=== PATIENT | male | born 1960 | race Caucasian/White ===

== ENCOUNTER 2022-12-17 12:57 | Inpatient (IN) | payer MEDICARE ==
[~2022-12-17] VITALS: Ht 165.1 cm; Wt 108.0 kg
[2022-12-17] MEDS ORDERED: FUROSEMIDE INJ 10 MG/ML 2 ML VIAL IV PRN (13:30)
[2022-12-17] MEDS ORDERED: SODIUM CHLORIDE 0.9% 250ML 250 ML IV ONE (13:30)
[2022-12-17] MEDS ORDERED: ACETAMINOPHEN 325 MG TAB PO STA (13:30)
[2022-12-17] MEDS ORDERED: DIPHENHYDRAMINE HCL INJ 50 MG/ML VIAL IV ONE (13:30)
[2022-12-17] MEDS ORDERED: OCTREOTIDE ACETATE 0.05 MG/ML AMP IV STA (13:47)
[2022-12-17 14:06] LABS: BASOPHILS % 0.2 % (0.0-1.0); EOSINOPHILS # (AUTO) 0.1 (0.0-0.4); EOSINOPHILS % 0.6 % (0.0-6.0); LYMPHOCYTES # (AUTO) 1.8 (1.0-3.2); MEAN CORPUSCULAR HEMOGLOBIN 21.1 pg (28-32); MEAN CORPUSCULAR HGB CONC 26.4 g/dL (31-35); MEAN CORPUSCULAR VOLUME 79.8 fL (81-99); MONOCYTES # (AUTO) 1.3 (0.2-0.8); MONOCYTES % 10.2 % (4.4-11.3); NEUTROPHILS % 73.6 % (38.7-80.0); PLATELET COUNT 323 x10e3/uL (140-360); RED BLOOD COUNT 2.23 x10e6/uL (4.3-5.7); RED CELL DISTRIBUTION WIDTH 20.4 % (11.7-14.4)
[2022-12-17 14:10] LABS: HEMOGLOBIN 4.7 g/dL (14.0-18.0)
[2022-12-17 14:11] LABS: HEMATOCRIT 17.8 % (38.2-49.6)
[2022-12-17 14:19] LABS: INR 1.15; PARTIAL THROMBOPLASTIN TIME 29.8 seconds (23.8-35.5); PROTHROMBIN TIME 15.2 seconds (11.9-14.5)
[2022-12-17 14:45] LABS: ALANINE AMINOTRANSFERASE 16 IU/L (0-55); ALBUMIN 2.4 g/dL (3.5-5.0); ALBUMIN/GLOBULIN RATIO 0.7 (0.8-2.0); ALKALINE PHOSPHATASE 240 IU/L (40-150); ANION GAP 14.5 mmol/L (8-16); BLOOD UREA NITROGEN < 5 mg/dL (7-26); CALCIUM 8.1 mg/dL (8.4-10.2); CARBON DIOXIDE 22 mmol/L (22-29); CHLORIDE 97 mmol/L (98-107); CREATINE KINASE 30 IU/L (30-200); GLUCOSE 99 mg/dL (74-118); POTASSIUM 3.5 mmol/L (3.5-5.1); SODIUM 130 mmol/L (136-145)
[2022-12-17 14:46] LABS: BUN/CREATININE RATIO 10 (6-25)
[2022-12-17] MEDS: SODIUM CHLORIDE 0.9% 1000ML 1,000 ML IV SCH ×2 (15:15→21:11)
[2022-12-17] MEDS: OCTREOTIDE ACETATE 500 MCG in SODIUM CHLORIDE 0.9% 250ML 250 ML IV SCH (15:17)
[2022-12-17 15:22] LABS: ALBUMIN 2.5 g/dL (3.5-5.0); BILIRUBIN,DIRECT 0.6 mg/dL (0.0-0.5)
[2022-12-17 15:33] LABS: HYPOCHROMASIA SLIGHT; PLATELET ESTIMATE ADEQUATE; PLATELET MORPHOLOGY COMMENT NORMAL
[2022-12-17 15:34] LABS: ANISOCYTOSIS SLIGHT; MICROCYTOSIS SLIGHT
[2022-12-17 17:00] VITALS: BP 147/87; PULSE 103; RESP 20; TEMP 97.7; O2SAT 100
[2022-12-17 17:15] VITALS: BP 147/87; PULSE 103; RESP 20; TEMP 97.7; O2SAT 100
[2022-12-17] MEDS ORDERED: AMLODIPINE-OLM1 EAC1 PO (17:30)
[2022-12-17] MEDS ORDERED: SIMVASTATIN40 MG PO (17:30)
[2022-12-17] MEDS ORDERED: OMEPRAZOLE20 MG PO (17:30)
[2022-12-17] MEDS ORDERED: ALBUTEROL2.5 MG/0.5 INH (17:30)
[2022-12-17] MEDS ORDERED: FUROSEMIDE40 MG PO (17:30)
[2022-12-17 19:25] VITALS: BP 150/90; PULSE 99; RESP 19; TEMP 98.7; O2SAT 99
[2022-12-17 20:10] VITALS: BP 150/90; PULSE 99; RESP 19; TEMP 98.7; O2SAT 99
[2022-12-17] MEDS ORDERED: SODIUM CHLORIDE 0.9% 250ML 250 ML ONE (20:52)
[2022-12-17] MEDS ORDERED: THIAMINE HCL INJ 100 MG/ML 2ML VIAL IV ONE (23:30)
[2022-12-17] MEDS ORDERED: MULTIVITAMINS- 12 INJECTION 10 ML, FOLIC ACID MDV 1 MG, THIAMINE HCL INJ 100 MG in SODI... IV ONE (23:30)
[2022-12-17 23:47] LABS: % IRON SATURATION 4 % (15-50); IRON 13 ug/dL (65-175); TOTAL IRON BINDING CAPACITY 364 ug/dL (261-478); TRANSFERRIN 260 mg/dL (174-364)
[2022-12-18] MEDS ORDERED: SPIRONOLACTONE 25 MG TAB PO ONE
[2022-12-18] MEDS ORDERED: THIAMINE HCL INJ 100 MG/ML 2ML VIAL ONE ×2 (00:06→00:36)
[2022-12-18] MEDS ORDERED: SODIUM CHLORIDE 0.9% 1000ML 1,000 ML ONE (00:06)
[2022-12-18] MEDS ORDERED: OCTREOTIDE ACETATE 1 ML ONE (00:36)
[2022-12-18] MEDS ORDERED: MULTIVITAMINS INJECTION ONE (00:36)
[2022-12-18] MEDS ORDERED: SODIUM CHLORIDE 0.9% 250ML 250 ML ONE (00:37)
[2022-12-18] MEDS: OCTREOTIDE ACETATE 500 MCG in SODIUM CHLORIDE 0.9% 250ML 250 ML IV SCH ×3 (02:13→20:06)
[2022-12-18 06:17] LABS: BASOPHILS % 0.4 % (0.0-1.0); EOSINOPHILS # (AUTO) 0.1 (0.0-0.4); EOSINOPHILS % 0.9 % (0.0-6.0); HEMATOCRIT 24.2 % (38.2-49.6); LYMPHOCYTES # (AUTO) 1.6 (1.0-3.2); LYMPHOCYTES % 15.4 % (18.0-39.1); MEAN CORPUSCULAR HEMOGLOBIN 24.1 pg (28-32); MEAN CORPUSCULAR HGB CONC 28.9 g/dL (31-35); MEAN CORPUSCULAR VOLUME 83.4 fL (81-99); MONOCYTES # (AUTO) 1.1 (0.2-0.8); MONOCYTES % 10.3 % (4.4-11.3); NEUTROPHILS # (AUTO) 7.4 (2.1-6.9); NEUTROPHILS % 72.3 % (38.7-80.0); PLATELET COUNT 284 x10e3/uL (140-360); RED CELL DISTRIBUTION WIDTH 18.6 % (11.7-14.4)
[2022-12-18 06:32] LABS: ALANINE AMINOTRANSFERASE 14 IU/L (0-55); ALBUMIN 2.4 g/dL (3.5-5.0); ALBUMIN/GLOBULIN RATIO 0.8 (0.8-2.0); ALKALINE PHOSPHATASE 214 IU/L (40-150); ANION GAP 12.4 mmol/L (8-16); BLOOD UREA NITROGEN < 5 mg/dL (7-26); CARBON DIOXIDE 25 mmol/L (22-29); CHLORIDE 98 mmol/L (98-107); CREATININE, SERUM 0.52 mg/dL (0.72-1.25); GLUCOSE 129 mg/dL (74-118); POTASSIUM 3.4 mmol/L (3.5-5.1); SODIUM 132 mmol/L (136-145)
[2022-12-18 06:36] LABS: BUN/CREATININE RATIO 10 (6-25)
[2022-12-18 08:21] VITALS: BP 135/81; PULSE 95; RESP 21; TEMP 98; O2SAT 97
[2022-12-18 09:30] VITALS: BP 135/81; PULSE 95; RESP 21; TEMP 98; O2SAT 97
[2022-12-18] MEDS: SPIRONOLACTONE 25 MG TAB PO SCH ×2 (09:38→16:39)
[2022-12-18] MEDS: CHLORDIAZEPOXIDE HCL 25 MG CAP PO SCH ×2 (09:38→20:08)
[2022-12-18] MEDS: FUROSEMIDE 40 MG TAB PO SCH (09:38)
[2022-12-18] MEDS: FOLIC ACID 1 MG TAB PO SCH (09:39)
[2022-12-18] MEDS: THIAMINE HCL INJ 100 MG/ML 2ML VIAL IV SCH (09:39)
[2022-12-18] MEDS ORDERED: SODIUM CHLORIDE 452MG TAB PO ONE (11:45)
[2022-12-18] MEDS ORDERED: ALBUTEROL SULF 0.083% NEB SOLN 3 ML NEB NEB PRN (11:45)
[2022-12-18 11:52] LABS: BASOPHILS # (AUTO) 0.1 (0.0-0.1); BASOPHILS % 0.5 % (0.0-1.0); EOSINOPHILS # (AUTO) 0.2 (0.0-0.4); EOSINOPHILS % 1.5 % (0.0-6.0); HEMATOCRIT 24.4 % (38.2-49.6); HEMOGLOBIN 7.2 g/dL (14.0-18.0); LYMPHOCYTES % 18.8 % (18.0-39.1); MEAN CORPUSCULAR HEMOGLOBIN 23.9 pg (28-32); MEAN CORPUSCULAR HGB CONC 29.5 g/dL (31-35); MEAN CORPUSCULAR VOLUME 81.1 fL (81-99); MONOCYTES % 9.8 % (4.4-11.3); NEUTROPHILS # (AUTO) 7.2 (2.1-6.9); NEUTROPHILS % 68.9 % (38.7-80.0); PLATELET COUNT 307 x10e3/uL (140-360); RED BLOOD COUNT 3.01 x10e6/uL (4.3-5.7); RED CELL DISTRIBUTION WIDTH 18.9 % (11.7-14.4)
[2022-12-18] MEDS ORDERED: POTASSIUM CHLORIDE 20 MEQ TAB CR PO ONE (12:00)
[2022-12-18 12:07] LABS: CREATINE KINASE 25 IU/L (30-200)
[2022-12-18] MEDS: AMLODIPINE BESYLATE 10 MG TAB PO SCH (12:10)
[2022-12-18 12:13] VITALS: BP 130/81; PULSE 77; RESP 21; TEMP 97.8; O2SAT 100
[2022-12-18 16:14] VITALS: BP 128/76; PULSE 101; RESP 22; TEMP 97.8; O2SAT 100
[2022-12-18] MEDS: IRON SUCROSE 100 MG in SODIUM CHLORIDE 0.9% 100 ML IV SCH (16:40)
[2022-12-18] MEDS ORDERED: BISACODYL 5 MG TAB EC PO ONE (17:00)
[2022-12-18 17:31] LABS: BASOPHILS % 0.4 % (0.0-1.0); EOSINOPHILS # (AUTO) 0.2 (0.0-0.4); HEMATOCRIT 23.6 % (38.2-49.6); LYMPHOCYTES # (AUTO) 2.1 (1.0-3.2); LYMPHOCYTES % 21.7 % (18.0-39.1); MEAN CORPUSCULAR HEMOGLOBIN 24.1 pg (28-32); MEAN CORPUSCULAR HGB CONC 29.7 g/dL (31-35); MEAN CORPUSCULAR VOLUME 81.1 fL (81-99); MONOCYTES % 9.9 % (4.4-11.3); NEUTROPHILS # (AUTO) 6.4 (2.1-6.9); NEUTROPHILS % 65.6 % (38.7-80.0); PLATELET COUNT 289 x10e3/uL (140-360); RED BLOOD COUNT 2.91 x10e6/uL (4.3-5.7); RED CELL DISTRIBUTION WIDTH 18.9 % (11.7-14.4)
[2022-12-18] MEDS ORDERED: BISACODYL 5 MG TAB EC PO SCH (19:00)
[2022-12-18 19:25] VITALS: BP 142/76; PULSE 80; RESP 18; TEMP 97.6; O2SAT 98
[2022-12-18 20:00] VITALS: BP 142/76; PULSE 82; RESP 18; TEMP 97.6; O2SAT 98
[2022-12-18] MEDS ORDERED: CITRATE OF MAGNESIA 300ML BOTTLE PO SCH (21:00)
[2022-12-18] MEDS ORDERED: FUROSEMIDE INJ 10 MG/ML 4 ML VIAL IV ONE ×2 (23:00)
[2022-12-19] VITALS (10 sets, daily range): BP systolic 112–147; BP diastolic 72–89; PULSE 79–112; RESP 18–20; TEMP 97.4–98.3; O2SAT 95–100
[2022-12-19] MEDS ORDERED: THIAMINE HCL INJ 100 MG/ML 2ML VIAL ONE (00:38)
[2022-12-19] MEDS ORDERED: SODIUM CHLORIDE 0.9% 1000ML 1,000 ML ONE (00:38)
[2022-12-19] MEDS: MULTIVITAMINS- 12 INJECTION 10 ML, FOLIC ACID MDV 1 MG, THIAMINE HCL INJ 100 MG in SODI... IV SCH (01:19)
[2022-12-19] MEDS ORDERED: CITRATE OF MAGNESIA 300ML BOTTLE PO SCH (05:00)
[2022-12-19] MEDS: OCTREOTIDE ACETATE 500 MCG in SODIUM CHLORIDE 0.9% 250ML 250 ML IV SCH ×2 (06:00→21:34)
[2022-12-19 06:17] LABS: BASOPHILS # (AUTO) 0.1 (0.0-0.1); BASOPHILS % 0.4 % (0.0-1.0); EOSINOPHILS # (AUTO) 0.2 (0.0-0.4); EOSINOPHILS % 1.9 % (0.0-6.0); HEMATOCRIT 26.3 % (38.2-49.6); HEMOGLOBIN 7.6 g/dL (14.0-18.0); LYMPHOCYTES # (AUTO) 2.1 (1.0-3.2); LYMPHOCYTES % 17.4 % (18.0-39.1); MEAN CORPUSCULAR HEMOGLOBIN 24.1 pg (28-32); MEAN CORPUSCULAR HGB CONC 28.9 g/dL (31-35); MEAN CORPUSCULAR VOLUME 83.2 fL (81-99); MONOCYTES # (AUTO) 1.3 (0.2-0.8); MONOCYTES % 10.6 % (4.4-11.3); NEUTROPHILS # (AUTO) 8.5 (2.1-6.9); NEUTROPHILS % 69.2 % (38.7-80.0); PLATELET COUNT 313 x10e3/uL (140-360); RED BLOOD COUNT 3.16 x10e6/uL (4.3-5.7); RED CELL DISTRIBUTION WIDTH 19.2 % (11.7-14.4)
[2022-12-19] MEDS: SPIRONOLACTONE 25 MG TAB PO SCH ×2 (09:00→17:48)
[2022-12-19] MEDS: OLMESARTAN 20 MG TAB PO SCH (09:00)
[2022-12-19] MEDS: FOLIC ACID 1 MG TAB PO SCH (09:00)
[2022-12-19] MEDS: CHLORDIAZEPOXIDE HCL 25 MG CAP PO SCH ×2 (09:00→21:25)
[2022-12-19] MEDS: SIMVASTATIN 40 MG TAB PO SCH (09:00)
[2022-12-19] MEDS: FUROSEMIDE 40 MG TAB PO SCH (09:00)
[2022-12-19] MEDS: AMLODIPINE BESYLATE 10 MG TAB PO SCH (09:00)
[2022-12-19 09:45] LABS: ANISOCYTOSIS SLIGHT; PLATELET ESTIMATE ADEQUATE; PLATELET MORPHOLOGY COMMENT NORMAL; RBC MORPHOLOGY COMMENT NORMAL
[2022-12-19] MEDS: THIAMINE HCL INJ 100 MG/ML 2ML VIAL IV SCH (09:47)
[2022-12-19] MEDS ORDERED: SODIUM CHLORIDE 0.9% 250ML 250 ML IV ONE (12:00)
[2022-12-19] MEDS ORDERED: LIDOCAINE HCL 2% LOCAL INJ 5 ML SDV VIAL INJ ONE (13:04)
[2022-12-19] MEDS ORDERED: PROPOFOL IV EMULSION 10 MG/ML 20 ML VIAL ONE (13:04)
[2022-12-19] MEDS ORDERED: ALBUTEROL SULF 0.083% NEB SOLN 3 ML NEB NEB PRN (13:30)
[2022-12-19] MEDS: IRON SUCROSE 100 MG in SODIUM CHLORIDE 0.9% 100 ML IV SCH (17:48)
[2022-12-19] MEDS ORDERED: SODIUM CHLORIDE 0.9% 250ML 250 ML ONE (18:36)
[2022-12-19 18:51] LABS: BASOPHILS % 0.4 % (0.0-1.0); EOSINOPHILS # (AUTO) 0.2 (0.0-0.4); EOSINOPHILS % 2.2 % (0.0-6.0); LYMPHOCYTES # (AUTO) 2.1 (1.0-3.2); LYMPHOCYTES % 18.8 % (18.0-39.1); MEAN CORPUSCULAR HEMOGLOBIN 24.3 pg (28-32); MEAN CORPUSCULAR HGB CONC 28.3 g/dL (31-35); MEAN CORPUSCULAR VOLUME 85.7 fL (81-99); MONOCYTES % 9.3 % (4.4-11.3); NEUTROPHILS # (AUTO) 7.6 (2.1-6.9); NEUTROPHILS % 68.7 % (38.7-80.0); PLATELET COUNT 290 x10e3/uL (140-360); RED CELL DISTRIBUTION WIDTH 19.3 % (11.7-14.4)
[2022-12-19 18:56] LABS: HEMOGLOBIN 6.8 g/dL (14.0-18.0)
[2022-12-20] VITALS (10 sets, daily range): BP systolic 100–134; BP diastolic 71–91; PULSE 64–86; RESP 18–20; TEMP 96.9–98; O2SAT 94–100
[2022-12-20] MEDS: OCTREOTIDE ACETATE 500 MCG in SODIUM CHLORIDE 0.9% 250ML 250 ML IV SCH ×2 (02:43→17:25)
[2022-12-20] MEDS: MULTIVITAMINS- 12 INJECTION 10 ML, FOLIC ACID MDV 1 MG, THIAMINE HCL INJ 100 MG in SODI... IV SCH (02:43)
[2022-12-20 05:50] LABS: BASOPHILS # (AUTO) 0.1 (0.0-0.1); BASOPHILS % 0.5 % (0.0-1.0); EOSINOPHILS # (AUTO) 0.3 (0.0-0.4); EOSINOPHILS % 2.6 % (0.0-6.0); HEMATOCRIT 26.5 % (38.2-49.6); HEMOGLOBIN 7.7 g/dL (14.0-18.0); LYMPHOCYTES # (AUTO) 2.1 (1.0-3.2); LYMPHOCYTES % 19.3 % (18.0-39.1); MEAN CORPUSCULAR HEMOGLOBIN 25.2 pg (28-32); MEAN CORPUSCULAR HGB CONC 29.1 g/dL (31-35); MEAN CORPUSCULAR VOLUME 86.9 fL (81-99); MONOCYTES # (AUTO) 0.9 (0.2-0.8); MONOCYTES % 8.6 % (4.4-11.3); NEUTROPHILS # (AUTO) 7.3 (2.1-6.9); NEUTROPHILS % 68.4 % (38.7-80.0); PLATELET COUNT 290 x10e3/uL (140-360); RED BLOOD COUNT 3.05 x10e6/uL (4.3-5.7); RED CELL DISTRIBUTION WIDTH 19.1 % (11.7-14.4)
[2022-12-20] MEDS ORDERED: CITRATE OF MAGNESIA 300ML BOTTLE PO ONE (07:00)
[2022-12-20] MEDS: AMLODIPINE BESYLATE 10 MG TAB PO SCH (09:01)
[2022-12-20] MEDS: OLMESARTAN 20 MG TAB PO SCH (09:01)
[2022-12-20] MEDS: SPIRONOLACTONE 25 MG TAB PO SCH ×2 (09:02→17:25)
[2022-12-20] MEDS: CHLORDIAZEPOXIDE HCL 25 MG CAP PO SCH ×2 (09:02→22:45)
[2022-12-20] MEDS: SIMVASTATIN 40 MG TAB PO SCH (09:02)
[2022-12-20] MEDS: FOLIC ACID 1 MG TAB PO SCH (09:02)
[2022-12-20] MEDS: THIAMINE HCL INJ 100 MG/ML 2ML VIAL IV SCH (09:02)
[2022-12-20] MEDS: FUROSEMIDE 40 MG TAB PO SCH (09:03)
[2022-12-20] MEDS ORDERED: SODIUM CHLORIDE 452MG TAB PO ONE ×2 (10:00→15:00)
[2022-12-20] MEDS ORDERED: POTASSIUM CHLORIDE 20 MEQ TAB CR PO ONE ×2 (10:30→16:00)
[2022-12-20] MEDS ORDERED: FENTANYL CITRATE/PF 100MCG/2 ML INJ ONE (11:28)
[2022-12-20] MEDS ORDERED: MAGNESIUM SULF 1GRAM/DEXTROSE 100 ML IV ONE (12:00)
[2022-12-20] MEDS ORDERED: HYOSCYAMINE SULFATE 0.5 MG/ML INJ ONE (12:55)
[2022-12-20] MEDS ORDERED: PROPOFOL IV EMULSION 10 MG/ML 20 ML VIAL ONE (12:55)
[2022-12-20] MEDS ORDERED: LIDOCAINE HCL 2% LOCAL INJ 5 ML SDV VIAL INJ ONE (12:55)
[2022-12-20] MEDS: IRON SUCROSE 100 MG in SODIUM CHLORIDE 0.9% 100 ML IV SCH (14:32)
[2022-12-20 15:12] LABS: BASOPHILS # (AUTO) 0.1 (0.0-0.1); BASOPHILS % 0.4 % (0.0-1.0); EOSINOPHILS # (AUTO) 0.3 (0.0-0.4); EOSINOPHILS % 2.6 % (0.0-6.0); HEMATOCRIT 28.2 % (38.2-49.6); HEMOGLOBIN 8.2 g/dL (14.0-18.0); LYMPHOCYTES # (AUTO) 2.1 (1.0-3.2); LYMPHOCYTES % 18.3 % (18.0-39.1); MEAN CORPUSCULAR HEMOGLOBIN 25.1 pg (28-32); MEAN CORPUSCULAR HGB CONC 29.1 g/dL (31-35); MEAN CORPUSCULAR VOLUME 86.2 fL (81-99); MONOCYTES # (AUTO) 0.7 (0.2-0.8); MONOCYTES % 6.3 % (4.4-11.3); NEUTROPHILS # (AUTO) 8.4 (2.1-6.9); PLATELET COUNT 292 x10e3/uL (140-360); RED BLOOD COUNT 3.27 x10e6/uL (4.3-5.7); RED CELL DISTRIBUTION WIDTH 19.5 % (11.7-14.4)
[2022-12-21] VITALS (11 sets, daily range): BP systolic 100–141; BP diastolic 62–80; PULSE 76–90; RESP 16–21; TEMP 97.2–98.9; O2SAT 87–99
[2022-12-21] MEDS: OCTREOTIDE ACETATE 500 MCG in SODIUM CHLORIDE 0.9% 250ML 250 ML IV SCH ×2 (04:41→15:52)
[2022-12-21] MEDS ORDERED: SODIUM CHLORIDE 0.9% 250ML 250 ML ONE (07:57)
[2022-12-21] MEDS: AMLODIPINE BESYLATE 5 MG TAB PO SCH (08:05)
[2022-12-21] MEDS: FUROSEMIDE 40 MG TAB PO SCH (08:05)
[2022-12-21] MEDS: FOLIC ACID 1 MG TAB PO SCH (08:06)
[2022-12-21] MEDS: CHLORDIAZEPOXIDE HCL 25 MG CAP PO SCH ×2 (08:06→20:29)
[2022-12-21] MEDS: SPIRONOLACTONE 25 MG TAB PO SCH ×2 (08:07→16:18)
[2022-12-21] MEDS: OLMESARTAN 20 MG TAB PO SCH (08:07)
[2022-12-21] MEDS: SODIUM CHLORIDE 452MG TAB PO SCH (08:08)
[2022-12-21] MEDS: SIMVASTATIN 40 MG TAB PO SCH (08:08)
[2022-12-21] MEDS: THIAMINE HCL INJ 100 MG/ML 2ML VIAL IV SCH (08:15)
[2022-12-21 08:55] LABS: BASOPHILS # (AUTO) 0.1 (0.0-0.1); BASOPHILS % 0.5 % (0.0-1.0); EOSINOPHILS # (AUTO) 0.2 (0.0-0.4); EOSINOPHILS % 1.6 % (0.0-6.0); HEMATOCRIT 29.9 % (38.2-49.6); HEMOGLOBIN 8.7 g/dL (14.0-18.0); LYMPHOCYTES # (AUTO) 2.6 (1.0-3.2); LYMPHOCYTES % 18.2 % (18.0-39.1); MEAN CORPUSCULAR HEMOGLOBIN 25.3 pg (28-32); MEAN CORPUSCULAR HGB CONC 29.1 g/dL (31-35); MEAN CORPUSCULAR VOLUME 86.9 fL (81-99); MONOCYTES % 7.2 % (4.4-11.3); NEUTROPHILS # (AUTO) 10.5 (2.1-6.9); NEUTROPHILS % 72.1 % (38.7-80.0); PLATELET COUNT 330 x10e3/uL (140-360); RED BLOOD COUNT 3.44 x10e6/uL (4.3-5.7); RED CELL DISTRIBUTION WIDTH 20.9 % (11.7-14.4)
[2022-12-21 09:16] LABS: ALANINE AMINOTRANSFERASE 15 IU/L (0-55); ALBUMIN 2.6 g/dL (3.5-5.0); ALBUMIN/GLOBULIN RATIO 0.8 (0.8-2.0); ALKALINE PHOSPHATASE 167 IU/L (40-150); ANION GAP 10.3 mmol/L (8-16); BLOOD UREA NITROGEN < 5 mg/dL (7-26); BUN/CREATININE RATIO 8 (6-25); CALCIUM 8.3 mg/dL (8.4-10.2); CARBON DIOXIDE 25 mmol/L (22-29); CHLORIDE 103 mmol/L (98-107); CREATININE, SERUM 0.64 mg/dL (0.72-1.25); GLUCOSE 113 mg/dL (74-118); POTASSIUM 3.3 mmol/L (3.5-5.1); SODIUM 135 mmol/L (136-145)
[2022-12-22] VITALS: BP 146/77; PULSE 88; RESP 20; TEMP 97.5; O2SAT 94
[2022-12-22] MEDS: OCTREOTIDE ACETATE 500 MCG in SODIUM CHLORIDE 0.9% 250ML 250 ML IV SCH ×3 (03:47→06:46)
[2022-12-22 04:45] VITALS: BP 112/65; PULSE 90; RESP 17; TEMP 97.5; O2SAT 98
[2022-12-22 06:00] LABS: BASOPHILS # (AUTO) 0.1 (0.0-0.1); BASOPHILS % 0.7 % (0.0-1.0); EOSINOPHILS # (AUTO) 0.2 (0.0-0.4); EOSINOPHILS % 1.9 % (0.0-6.0); HEMATOCRIT 27.1 % (38.2-49.6); HEMOGLOBIN 7.9 g/dL (14.0-18.0); LYMPHOCYTES # (AUTO) 2.2 (1.0-3.2); LYMPHOCYTES % 20.8 % (18.0-39.1); MEAN CORPUSCULAR HEMOGLOBIN 25.6 pg (28-32); MEAN CORPUSCULAR HGB CONC 29.2 g/dL (31-35); MEAN CORPUSCULAR VOLUME 87.7 fL (81-99); MONOCYTES # (AUTO) 0.9 (0.2-0.8); MONOCYTES % 8.7 % (4.4-11.3); NEUTROPHILS % 67.5 % (38.7-80.0); PLATELET COUNT 281 x10e3/uL (140-360); RED BLOOD COUNT 3.09 x10e6/uL (4.3-5.7)
[2022-12-22 06:28] LABS: ANION GAP 9.1 mmol/L (8-16); BLOOD UREA NITROGEN < 5 mg/dL (7-26); CALCIUM 7.9 mg/dL (8.4-10.2); CARBON DIOXIDE 26 mmol/L (22-29); CHLORIDE 104 mmol/L (98-107); CREATININE, SERUM 0.56 mg/dL (0.72-1.25); GLUCOSE 118 mg/dL (74-118); POTASSIUM 3.1 mmol/L (3.5-5.1); SODIUM 136 mmol/L (136-145)
[2022-12-22 06:31] LABS: BUN/CREATININE RATIO 9 (6-25)
[2022-12-22 07:28] VITALS: BP 123/73; PULSE 86; RESP 16; TEMP 97.5; O2SAT 95
[2022-12-22] MEDS: CHLORDIAZEPOXIDE HCL 25 MG CAP PO SCH (08:29)
[2022-12-22] MEDS: THIAMINE HCL INJ 100 MG/ML 2ML VIAL IV SCH (08:29)
[2022-12-22] MEDS: SODIUM CHLORIDE 452MG TAB PO SCH (08:30)
[2022-12-22] MEDS: FOLIC ACID 1 MG TAB PO SCH (08:30)
[2022-12-22] MEDS: OLMESARTAN 20 MG TAB PO SCH (08:31)
[2022-12-22] MEDS: SPIRONOLACTONE 25 MG TAB PO SCH (08:32)
[2022-12-22] MEDS: FUROSEMIDE 40 MG TAB PO SCH (08:32)
[2022-12-22] MEDS: AMLODIPINE BESYLATE 5 MG TAB PO SCH (08:32)
[2022-12-22] MEDS: SIMVASTATIN 40 MG TAB PO SCH (08:34)
[2022-12-22] MEDS ORDERED: IRON-VITAMIN-MINERAL CAPSULE PO SCH (09:00)
[2022-12-22 09:08] LABS: PLATELET ESTIMATE ADEQUATE
[2022-12-22 09:12] LABS: PLATELET MORPHOLOGY COMMENT NORMAL; RBC MORPHOLOGY COMMENT NORMAL
[2022-12-22 10:03] VITALS: BP 123/73; PULSE 86; RESP 16; TEMP 97.5; O2SAT 95
[2022-12-22 10:45] VITALS: PULSE 86; RESP 20; O2SAT 94
[2022-12-22 11:14] VITALS: BP 116/65; PULSE 84; RESP 18; TEMP 97.1; O2SAT 98
[2022-12-22] MEDS ORDERED: POTASSIUM CHLORIDE 20 MEQ TAB CR PO ONE (13:50)
[2022-12-22] MEDS ORDERED: Folic Acid PO (13:59)
[2022-12-22] MEDS ORDERED: ALDACTONE25 MG PO (13:59)
[2022-12-22] MEDS ORDERED: FEROCON CAPSUL1 EACH PO (14:04)
[2022-12-23] MEDS ORDERED: THIAMINE HCL 100 MG TAB PO SCH (09:00)
== END 2022-12-22 15:10 | disposition home or self-care (01) | DRG 378 ==
LOC: ER 13:08 → ERHOLD 15:07 → MED/SURG3 16:50
PROVIDERS: ADMIT Internal Medicine; ATTEND Internal Medicine
PROC: 0DBN8ZZ Excision of Sigmoid Colon, Via Natural or Artificial Opening Endoscopic (ICD-10-PCS; 2022-12-20)
PROC: 0DBM8ZZ Excision of Descending Colon, Via Natural or Artificial Opening Endoscopic (ICD-10-PCS; principal; 2022-12-20 12:32)
PROC: 0DBL8ZZ Excision of Transverse Colon, Via Natural or Artificial Opening Endoscopic (ICD-10-PCS; 2022-12-20 12:32)
DX: K92.2 Gastrointestinal hemorrhage, unspecified (principal); D62 Acute posthemorrhagic anemia; F10.288 Alcohol dependence with other alcohol-induced disorder; K76.6 Portal hypertension; K29.70 Gastritis, unspecified, without bleeding; E78.2 Mixed hyperlipidemia; K21.9 Gastro-esophageal reflux disease without esophagitis; E66.9 Obesity, unspecified; R60.0 Localized edema; K63.5 Polyp of colon; K57.90 Diverticulosis of intestine, part unspecified, without perforation or abscess without bleeding; I11.9 Hypertensive heart disease without heart failure; K75.81 Nonalcoholic steatohepatitis (NASH); K31.89 Other diseases of stomach and duodenum; K64.8 Other hemorrhoids; Z20.822 Contact with and (suspected) exposure to COVID-19; Z68.39 Body mass index [BMI] 39.0-39.9, adult
CPT/HCPCS: 0223U; 36415; 43239; 45378; 45385; 71045; 76700; 80048; 80053; 80076; 82550; 82553; 82607; 82746; 83540; 83735; 84466; 84484; 85025; 85045; 85610; 85730; 86850; 86900; 86920; 88305; 88342; 93306; 94799; 99284; J1756; J1940; J1980; J2001; J2353; J3411; J3475; J7030; J7050; P9016

== ENCOUNTER 2024-10-02 18:49 | Inpatient (IN) | payer MEDICARE ==
[~2024-10-02] VITALS: Ht 165.1 cm; Wt 109.1 kg
[~2024-10-02 18:49] MED LIST: ALBUTEROL2.5 MG/0.5 INH; ALDACTONE25 MG PO; AMLODIPINE-OLM1 EAC1 PO; FEROCON CAPSUL1 EACH PO; FUROSEMIDE40 MG PO; Folic Acid PO; OMEPRAZOLE20 MG PO; SIMVASTATIN40 MG PO
[2024-10-02] MEDS ORDERED: SUCCINYLCHOLINE CHLORIDE 20 MG/ML 10ML VIAL ONE (19:16)
[2024-10-02] MEDS ORDERED: VECURONIUM BROMIDE FOR INJ 20 MG VIAL ONE (19:16)
[2024-10-02] MEDS ORDERED: MIDAZOLAM HCL 2 MG/2 ML VIAL ONE (19:16)
[2024-10-02] MEDS ORDERED: ETOMIDATE 40 MG/ 20ML VIAL IV ONE (19:16)
[2024-10-02] MEDS ORDERED: WATER STERILE 10 ML VIAL ONE (19:16)
[2024-10-02 19:20] VITALS: TEMP 98.8
[2024-10-02] MEDS ORDERED: IPRATROPIUM BROMIDE 0.02% 2.5 ML NEB ONE (19:33)
[2024-10-02] MEDS: ALBUTEROL SULF 0.083% NEB SOLN 3 ML NEB NEB STA (19:40)
[2024-10-02] MEDS: IPRATROPIUM BROMIDE 0.02% 2.5 ML NEB NEB ONE (19:40)
[2024-10-02 19:45] VITALS: PULSE 82; RESP 35; O2SAT 98
[2024-10-02] MEDS: METHYLPREDNISOLONE SOD SUCC 125 MG/2ML VIAL IV ONE (19:47)
[2024-10-02] MEDS: CEFTRIAXONE 2 GM in SODIUM CHLORIDE 0.9% 100 ML IV ONE (19:48)
[2024-10-02 20:02] LABS: BASOPHILS # (AUTO) 0.1 (0.0-0.1); BASOPHILS % 0.5 % (0.0-1.0); EOSINOPHILS % 0.3 % (0.0-6.0); HEMATOCRIT 45.4 % (38.2-49.6); HEMOGLOBIN 14.7 g/dL (14.0-18.0); LYMPHOCYTES # (AUTO) 3.1 (1.0-3.2); LYMPHOCYTES % 21.2 % (18.0-39.1); MEAN CORPUSCULAR HEMOGLOBIN 33.6 pg (28-32); MEAN CORPUSCULAR HGB CONC 32.4 g/dL (31-35); MEAN CORPUSCULAR VOLUME 103.7 fL (81-99); MONOCYTES # (AUTO) 1.5 (0.2-0.8); MONOCYTES % 10.4 % (4.4-11.3); NEUTROPHILS # (AUTO) 9.8 (2.1-6.9); NEUTROPHILS % 66.6 % (38.7-80.0); PLATELET COUNT 300 x10e3/uL (140-360); RED BLOOD COUNT 4.38 x10e6/uL (4.3-5.7); RED CELL DISTRIBUTION WIDTH 13.6 % (11.7-14.4); WHITE BLOOD COUNT 14.75 x10e3/uL (4.8-10.8)
[2024-10-02 20:09] LABS: INR 0.99; PARTIAL THROMBOPLASTIN TIME 26.9 seconds (23.8-35.5); PROTHROMBIN TIME 13.7 seconds (11.9-14.5)
[2024-10-02 20:16] LABS: ALBUMIN 3.3 g/dL (3.5-5.0); ALBUMIN/GLOBULIN RATIO 0.8 (0.8-2.0); ANION GAP 14.7 mmol/L (8-16); BILIRUBIN,TOTAL 0.6 mg/dL (0.2-1.2); CALCIUM 9.1 mg/dL (8.4-10.2); CREATININE, SERUM 0.59 mg/dL (0.72-1.25); POTASSIUM 4.7 mmol/L (3.5-5.1); TOTAL PROTEIN 7.3 g/dL (6.5-8.1)
[2024-10-02 21:24] LABS: INFLUENZA A AG NEGATIVE (NEGATIVE)
[2024-10-02 21:25] LABS: CORONAVIRUS COVID-19 AG NEGATIVE (NEGATIVE); INFLUENZA B AG NEGATIVE (NEGATIVE)
[2024-10-02] MEDS ORDERED: ACETAMINOPHEN 1000 MG/100 ML IV PRN (22:15)
[2024-10-02 22:26] VITALS: BP 165/107; PULSE 101; RESP 22; TEMP 99; O2SAT 93
[2024-10-02 22:30] VITALS: PULSE 99; RESP 24
[2024-10-02 22:45] VITALS: BP 166/117; PULSE 101; RESP 22; TEMP 99; O2SAT 94
[2024-10-02 23:00] VITALS: BP 179/95; PULSE 74; RESP 26; O2SAT 95
[2024-10-03] VITALS (78 sets, daily range): BP systolic 92–187; BP diastolic 52–144; PULSE 80–121; RESP 15–39; TEMP 97.7–100.1; O2SAT 89–100
[2024-10-03] MEDS: SODIUM CHLORIDE 0.9% 1000ML 1,000 ML IV SCH (00:05)
[2024-10-03] MEDS: METHYLPREDNISOLONE SOD SUCC 40 MG/ML VIAL 1ML IV SCH (00:05)
[2024-10-03] MEDS: IPRATROPIUM BROMIDE 0.02% 2.5 ML NEB NEB SCH (00:12)
[2024-10-03] MEDS: ALBUTEROL SULF 0.083% NEB SOLN 3 ML NEB NEB SCH (00:12)
[2024-10-03] MEDS ORDERED: BENZONATATE100 MG PO (00:46)
[2024-10-03] MEDS: HYDRALAZINE HCL 20 MG/ML VIAL IV PRN ×2 (00:52→08:57)
[2024-10-03 06:42] LABS: BASOPHILS # (AUTO) 0.1 (0.0-0.1); BASOPHILS % 0.3 % (0.0-1.0); EOSINOPHILS # (AUTO) 0.1 (0.0-0.4); EOSINOPHILS % 0.5 % (0.0-6.0); HEMATOCRIT 51.2 % (38.2-49.6); HEMOGLOBIN 15.7 g/dL (14.0-18.0); LYMPHOCYTES # (AUTO) 0.8 (1.0-3.2); LYMPHOCYTES % 4.9 % (18.0-39.1); MEAN CORPUSCULAR HEMOGLOBIN 33.9 pg (28-32); MEAN CORPUSCULAR HGB CONC 30.7 g/dL (31-35); MEAN CORPUSCULAR VOLUME 110.6 fL (81-99); MONOCYTES # (AUTO) 0.4 (0.2-0.8); MONOCYTES % 2.3 % (4.4-11.3); NEUTROPHILS # (AUTO) 14.8 (2.1-6.9); NEUTROPHILS % 90.1 % (38.7-80.0); PLATELET COUNT 322 x10e3/uL (140-360); RED BLOOD COUNT 4.63 x10e6/uL (4.3-5.7); RED CELL DISTRIBUTION WIDTH 13.5 % (11.7-14.4); WHITE BLOOD COUNT 16.48 x10e3/uL (4.8-10.8)
[2024-10-03 07:01] LABS: ALBUMIN 3.5 g/dL (3.5-5.0); ALBUMIN/GLOBULIN RATIO 0.8 (0.8-2.0); ANION GAP 15.5 mmol/L (8-16); BILIRUBIN,TOTAL 0.4 mg/dL (0.2-1.2); CREATININE, SERUM 0.84 mg/dL (0.72-1.25); TOTAL PROTEIN 7.9 g/dL (6.5-8.1)
[2024-10-03 07:07] LABS: POTASSIUM 5.5 mmol/L (3.5-5.1)
[2024-10-03] MEDS ORDERED: IPRATROPIUM BROMIDE 0.02% 2.5 ML NEB NEB PRN (07:15)
[2024-10-03 07:31] LABS: TROPONIN I 0.01 ng/mL (0-0.300)
[2024-10-03 07:56] LABS: BACTERIA,URINE MODERATE /HPF; BILIRUBIN,URINE SMALL (NEGATIVE); CLARITY,URINE CLEAR (CLEAR); COLOR,URINE YELLOW (YELLOW); EPITHELIAL CELLS,URINE MODERATE /LPF; GLUCOSE, URINE NEGATIVE (NEGATIVE); KETONES,URINE NEGATIVE (NEGATIVE); LEUKOCYTE ESTERASE ,URINE NEGATIVE (NEGATIVE); NITRITE,URINE NEGATIVE (NEGATIVE); PH,URINE 6 (5 - 7); PROTEIN,URINE DIPSTICK 2+ (NEGATIVE)
[2024-10-03] MEDS: PROPOFOL IV EMULSION 10MG/ML 100 ML IV PRN (08:30)
[2024-10-03] MEDS: SIMVASTATIN 40 MG TAB PO SCH (08:31)
[2024-10-03] MEDS: MUPIROCIN 2% OINT 22 GM TUBE TOP SCH (08:31)
[2024-10-03] MEDS ORDERED: DEXTROSE 50% SYRINGE 50 ML IV PRN (09:30)
[2024-10-03] MEDS ORDERED: ACETAMINOPHEN 1000 MG/100 ML IV PRN (09:30)
[2024-10-03] MEDS: FENTANYL 2000MCG/NS 250 250 ML IV PRN (10:21)
[2024-10-03 10:57] LABS: ABG HCO3 38 mmol/L (22-26); ABG PCO2 116 mmHg (35-45); ABG PH 7.12 (7.35-7.45); ABG PO2 98 mmHg (80-105); ABG TCO2 41
[2024-10-03 10:58] LABS: ABG PCO2 58 mmHg (35-45); ABG PH 7.38 (7.35-7.45)
[2024-10-03 10:59] LABS: ABG HCO3 34 mmol/L (22-26); ABG PO2 57 mmHg (80-105); ABG TCO2 36
[2024-10-03] MEDS: INSULIN LISPRO 100 UNIT/1 ML 3ML VIAL SQ SCH (11:19)
[2024-10-03] MEDS ORDERED: IOPAMIDOL 370 MG/ML 100 ML INFUS..BTL INJ ONE (11:58)
[2024-10-03 14:44] LABS: TROPONIN I 0.011 ng/mL (0-0.300)
[2024-10-03] MEDS: ENOXAPARIN SOD INJ 40 MG/0.4 ML SYR SC SCH (16:32)
[2024-10-03] MEDS: NYSTATIN 15 GM POWDER UD BTL TOP SCH (20:04)
[2024-10-04] VITALS (70 sets, daily range): BP systolic 106–177; BP diastolic 66–145; PULSE 59–92; RESP 6–22; TEMP 97.2–98.7; O2SAT 83–100
[2024-10-04 06:45] LABS: BASOPHILS % 0.2 % (0.0-1.0); EOSINOPHILS % 0.1 % (0.0-6.0); HEMATOCRIT 44.7 % (38.2-49.6); HEMOGLOBIN 14.5 g/dL (14.0-18.0); LYMPHOCYTES % 18.4 % (18.0-39.1); MEAN CORPUSCULAR HEMOGLOBIN 33.5 pg (28-32); MEAN CORPUSCULAR HGB CONC 32.4 g/dL (31-35); MEAN CORPUSCULAR VOLUME 103.2 fL (81-99); MONOCYTES # (AUTO) 1.5 (0.2-0.8); MONOCYTES % 8.9 % (4.4-11.3); NEUTROPHILS # (AUTO) 11.7 (2.1-6.9); NEUTROPHILS % 71.5 % (38.7-80.0); PLATELET COUNT 292 x10e3/uL (140-360); RED BLOOD COUNT 4.33 x10e6/uL (4.3-5.7); RED CELL DISTRIBUTION WIDTH 14.1 % (11.7-14.4); WHITE BLOOD COUNT 16.43 x10e3/uL (4.8-10.8)
[2024-10-04 07:19] LABS: ALBUMIN/GLOBULIN RATIO 0.9 (0.8-2.0); ANION GAP 15.8 mmol/L (8-16); BILIRUBIN,TOTAL 0.8 mg/dL (0.2-1.2); CALCIUM 8.9 mg/dL (8.4-10.2); CREATININE, SERUM 0.86 mg/dL (0.72-1.25); POTASSIUM 3.8 mmol/L (3.5-5.1); TOTAL PROTEIN 6.5 g/dL (6.5-8.1)
[2024-10-04 07:36] LABS: ABG HCO3 32 mmol/L (22-26); ABG PCO2 36 mmHg (35-45); ABG PH 7.56 (7.35-7.45); ABG PO2 90 mmHg (80-105); ABG TCO2 33
[2024-10-04 07:49] LABS: MAGNESIUM 1.7 MG/DL (1.3-2.1); PHOSPHORUS 1.9 MG/DL (2.3-4.7)
[2024-10-04] MEDS: THIAMINE HCL INJ 100 MG/ML 2ML VIAL IV ONE (08:09)
[2024-10-04 08:47] LABS: FOLATE 13.1 ng/mL (7.0-15.4)
[2024-10-04] MEDS: MIDAZOLAM HCL 2 MG/2 ML VIAL IV ONE (09:51)
[2024-10-04] MEDS: METHYLPREDNISOLONE SOD SUCC 125 MG/2ML VIAL IV SCH (09:51)
[2024-10-04] MEDS: MIDAZOLAM HCL 2 MG/2 ML VIAL ONE (09:52)
[2024-10-04 10:33] LABS: ABG HCO3 34 mmol/L (22-26); ABG PCO2 55 mmHg (35-45); ABG PO2 75 mmHg (80-105); ABG TCO2 36
[2024-10-04] MEDS: Doxycycline IV 100 MG in SODIUM CHLORIDE 0.9% 100 ML IV SCH (14:38)
[2024-10-04 14:47] LABS: CLARITY,URINE SL CLOUDY (CLEAR); COLOR,URINE YELLOW (YELLOW); LEUKOCYTE ESTERASE ,URINE NEGATIVE (NEGATIVE); NITRITE,URINE NEGATIVE (NEGATIVE); PH,URINE 6 (5 - 7)
[2024-10-04 14:48] LABS: BILIRUBIN,URINE SMALL (NEGATIVE); GLUCOSE, URINE NEGATIVE (NEGATIVE); KETONES,URINE NEGATIVE (NEGATIVE); PROTEIN,URINE DIPSTICK 2+ (NEGATIVE); URINE UROBILINOGEN 1 mg/dL (0.2 - 1)
[2024-10-04 15:14] LABS: WBC,URINE (MAN) 0-5 /HPF (0-5)
[2024-10-04 15:15] LABS: BACTERIA,URINE RARE /HPF; EPITHELIAL CELLS,URINE RARE /LPF; RBC,URINE >50 /HPF (0-5); URIC ACID CRYSTALS,URINE FEW
[2024-10-04] MEDS: PROPOFOL IV EMULSION 10MG/ML 100 ML ONE (20:44)
[2024-10-05] VITALS (53 sets, daily range): BP systolic 101–187; BP diastolic 58–120; PULSE 56–109; RESP 15–22; TEMP 97.3–98.6; O2SAT 94–100
[2024-10-05 06:58] LABS: BASOPHILS % 0.2 % (0.0-1.0); HEMOGLOBIN 13.8 g/dL (14.0-18.0); LYMPHOCYTES # (AUTO) 1.1 (1.0-3.2); LYMPHOCYTES % 9.9 % (18.0-39.1); MEAN CORPUSCULAR HEMOGLOBIN 33.2 pg (28-32); MEAN CORPUSCULAR HGB CONC 32.9 g/dL (31-35); MONOCYTES # (AUTO) 0.9 (0.2-0.8); MONOCYTES % 7.9 % (4.4-11.3); NEUTROPHILS # (AUTO) 9.1 (2.1-6.9); NEUTROPHILS % 81.1 % (38.7-80.0); PLATELET COUNT 243 x10e3/uL (140-360); RED BLOOD COUNT 4.16 x10e6/uL (4.3-5.7); RED CELL DISTRIBUTION WIDTH 13.9 % (11.7-14.4); WHITE BLOOD COUNT 11.19 x10e3/uL (4.8-10.8)
[2024-10-05 07:18] LABS: ALBUMIN 2.7 g/dL (3.5-5.0); ALBUMIN/GLOBULIN RATIO 0.8 (0.8-2.0); ANION GAP 14.1 mmol/L (8-16); BILIRUBIN,TOTAL 0.6 mg/dL (0.2-1.2); CALCIUM 8.8 mg/dL (8.4-10.2); CREATININE, SERUM 0.67 mg/dL (0.72-1.25); POTASSIUM 4.1 mmol/L (3.5-5.1); TOTAL PROTEIN 6.3 g/dL (6.5-8.1)
[2024-10-05] MEDS ORDERED: MIDAZOLAM HCL 2 MG/2 ML VIAL ONE (08:11)
[2024-10-05] MEDS: METHYLPREDNISOLONE SOD SUCC 40 MG/ML VIAL 1ML IV SCH (08:20)
[2024-10-05] MEDS: MIDAZOLAM HCL 2 MG/2 ML VIAL IV STA (08:57)
[2024-10-05 09:36] LABS: ABG HCO3 30 mmol/L (22-26); ABG PCO2 45 mmHg (35-45); ABG PH 7.43 (7.35-7.45); ABG PO2 86 mmHg (80-105); ABG TCO2 31
[2024-10-05] MEDS: MIDAZOLAM HCL 2 MG/2 ML VIAL IV PRN (11:32)
[2024-10-05] MEDS: INSULIN LISPRO 100 UNIT/1 ML 3ML VIAL SQ SCH (11:33)
[2024-10-06] VITALS (27 sets, daily range): BP systolic 96–184; BP diastolic 54–104; PULSE 58–101; RESP 16–24; TEMP 97.9–98.8; O2SAT 95–100
[2024-10-06 06:04] LABS: BASOPHILS % 0.1 % (0.0-1.0); EOSINOPHILS % 0.1 % (0.0-6.0); HEMATOCRIT 38.9 % (38.2-49.6); LYMPHOCYTES # (AUTO) 2.7 (1.0-3.2); LYMPHOCYTES % 18.6 % (18.0-39.1); MEAN CORPUSCULAR HEMOGLOBIN 33.1 pg (28-32); MEAN CORPUSCULAR HGB CONC 33.4 g/dL (31-35); MONOCYTES # (AUTO) 1.3 (0.2-0.8); MONOCYTES % 9.1 % (4.4-11.3); NEUTROPHILS # (AUTO) 10.4 (2.1-6.9); NEUTROPHILS % 71.6 % (38.7-80.0); PLATELET COUNT 242 x10e3/uL (140-360); RED BLOOD COUNT 3.93 x10e6/uL (4.3-5.7); RED CELL DISTRIBUTION WIDTH 13.6 % (11.7-14.4)
[2024-10-06 06:30] LABS: ALBUMIN 2.8 g/dL (3.5-5.0); ALBUMIN/GLOBULIN RATIO 0.8 (0.8-2.0); ANION GAP 14.4 mmol/L (8-16); BILIRUBIN,TOTAL 0.6 mg/dL (0.2-1.2); CALCIUM 8.7 mg/dL (8.4-10.2); CREATININE, SERUM 0.64 mg/dL (0.72-1.25); TOTAL PROTEIN 6.2 g/dL (6.5-8.1)
[2024-10-06 07:03] LABS: POTASSIUM 3.4 mmol/L (3.5-5.1)
[2024-10-06] MEDS: METHYLPREDNISOLONE SOD SUCC 40 MG/ML VIAL 1ML IV SCH (07:28)
[2024-10-06] MEDS: POTASSIUM CHLORIDE 20MEQ/100ML 100 ML IV SCH (07:46)
[2024-10-06 07:47] LABS: ABG PH 7.37 (7.35-7.45)
[2024-10-06 07:48] LABS: ABG HCO3 31 mmol/L (22-26); ABG PCO2 53 mmHg (35-45); ABG PO2 88 mmHg (80-105); ABG TCO2 32
[2024-10-07] VITALS (51 sets, daily range): BP systolic 105–200; BP diastolic 57–146; PULSE 57–114; RESP 11–32; TEMP 98–98.7; O2SAT 91–100
[2024-10-07 06:51] LABS: BASOPHILS % 0.1 % (0.0-1.0); EOSINOPHILS % 0.3 % (0.0-6.0); HEMATOCRIT 37.7 % (38.2-49.6); HEMOGLOBIN 12.3 g/dL (14.0-18.0); LYMPHOCYTES # (AUTO) 3.1 (1.0-3.2); LYMPHOCYTES % 26.2 % (18.0-39.1); MEAN CORPUSCULAR HEMOGLOBIN 32.8 pg (28-32); MEAN CORPUSCULAR HGB CONC 32.6 g/dL (31-35); MEAN CORPUSCULAR VOLUME 100.5 fL (81-99); MONOCYTES # (AUTO) 1.1 (0.2-0.8); MONOCYTES % 9.5 % (4.4-11.3); NEUTROPHILS # (AUTO) 7.5 (2.1-6.9); NEUTROPHILS % 63.3 % (38.7-80.0); PLATELET COUNT 235 x10e3/uL (140-360); RED BLOOD COUNT 3.75 x10e6/uL (4.3-5.7); RED CELL DISTRIBUTION WIDTH 14.2 % (11.7-14.4); WHITE BLOOD COUNT 11.89 x10e3/uL (4.8-10.8)
[2024-10-07 07:21] LABS: ALBUMIN 2.8 g/dL (3.5-5.0); ALBUMIN/GLOBULIN RATIO 0.8 (0.8-2.0); ANION GAP 12.6 mmol/L (8-16); BILIRUBIN,TOTAL 0.7 mg/dL (0.2-1.2); CALCIUM 8.9 mg/dL (8.4-10.2); CREATININE, SERUM 0.64 mg/dL (0.72-1.25); POTASSIUM 3.6 mmol/L (3.5-5.1); TOTAL PROTEIN 6.1 g/dL (6.5-8.1)
[2024-10-07 10:29] LABS: ABG HCO3 29 mmol/L (22-26); ABG PCO2 48 mmHg (35-45); ABG PO2 68 mmHg (80-105); ABG TCO2 31
[2024-10-07 10:31] LABS: ABG HCO3 31 mmol/L (22-26); ABG PCO2 53 mmHg (35-45); ABG PH 7.37 (7.35-7.45); ABG PO2 87 mmHg (80-105); ABG TCO2 32
[2024-10-07] MEDS: ALBUTEROL SULF 0.083% NEB SOLN 3 ML NEB NEB PRN (12:50)
[2024-10-07 14:14] LABS: ABG HCO3 32 mmol/L (22-26); ABG PCO2 48 mmHg (35-45); ABG PH 7.42 (7.35-7.45); ABG PO2 81 mmHg (80-105); ABG TCO2 33
[2024-10-08] VITALS (37 sets, daily range): BP systolic 109–185; BP diastolic 75–129; PULSE 75–107; RESP 12–30; TEMP 98.2–98.6; O2SAT 91–99
[2024-10-08 05:38] LABS: ABG HCO3 29 mmol/L (22-26); ABG PCO2 48 mmHg (35-45); ABG PO2 68 mmHg (80-105); ABG TCO2 31
[2024-10-08 05:38] LABS: ABG HCO3 31 mmol/L (22-26); ABG PCO2 53 mmHg (35-45); ABG PH 7.37 (7.35-7.45); ABG PO2 87 mmHg (80-105); ABG TCO2 32
[2024-10-08 05:38] LABS: ABG HCO3 34 mmol/L (22-26); ABG PCO2 55 mmHg (35-45); ABG PO2 75 mmHg (80-105); ABG TCO2 36
[2024-10-08 05:38] LABS: ABG HCO3 32 mmol/L (22-26); ABG PCO2 48 mmHg (35-45); ABG PH 7.42 (7.35-7.45); ABG PO2 81 mmHg (80-105); ABG TCO2 33
[2024-10-08 05:38] LABS: ABG HCO3 42 mmol/L (22-26); ABG PCO2 100 mmHg (35-45); ABG PH 7.23 (7.35-7.45); ABG PO2 47 mmHg (80-105); ABG TCO2 45
[2024-10-08 05:38] LABS: ABG HCO3 31 mmol/L (22-26); ABG PCO2 53 mmHg (35-45); ABG PH 7.37 (7.35-7.45); ABG PO2 88 mmHg (80-105); ABG TCO2 32
[2024-10-08 05:38] LABS: ABG HCO3 30 mmol/L (22-26); ABG PCO2 45 mmHg (35-45); ABG PH 7.43 (7.35-7.45); ABG PO2 86 mmHg (80-105); ABG TCO2 31
[2024-10-08 05:38] LABS: ABG HCO3 38 mmol/L (22-26); ABG PH 7.12 (7.35-7.45); ABG PO2 98 mmHg (80-105); ABG TCO2 41
[2024-10-08 05:38] LABS: ABG HCO3 32 mmol/L (22-26); ABG PCO2 36 mmHg (35-45); ABG PH 7.56 (7.35-7.45); ABG PO2 90 mmHg (80-105); ABG TCO2 33
[2024-10-08 05:38] LABS: ABG HCO3 34 mmol/L (22-26); ABG PCO2 58 mmHg (35-45); ABG PH 7.38 (7.35-7.45); ABG PO2 57 mmHg (80-105); ABG TCO2 36
[2024-10-08 07:01] LABS: BASOPHILS % 0.2 % (0.0-1.0); EOSINOPHILS # (AUTO) 0.1 (0.0-0.4); EOSINOPHILS % 0.5 % (0.0-6.0); HEMATOCRIT 37.9 % (38.2-49.6); LYMPHOCYTES # (AUTO) 2.7 (1.0-3.2); LYMPHOCYTES % 23.7 % (18.0-39.1); MEAN CORPUSCULAR HEMOGLOBIN 32.7 pg (28-32); MEAN CORPUSCULAR HGB CONC 31.7 g/dL (31-35); MEAN CORPUSCULAR VOLUME 103.3 fL (81-99); MONOCYTES # (AUTO) 1.2 (0.2-0.8); MONOCYTES % 10.3 % (4.4-11.3); NEUTROPHILS # (AUTO) 7.5 (2.1-6.9); PLATELET COUNT 240 x10e3/uL (140-360); RED BLOOD COUNT 3.67 x10e6/uL (4.3-5.7); RED CELL DISTRIBUTION WIDTH 14.1 % (11.7-14.4); WHITE BLOOD COUNT 11.49 x10e3/uL (4.8-10.8)
[2024-10-08 07:30] LABS: ALBUMIN 2.9 g/dL (3.5-5.0); ANION GAP 13.4 mmol/L (8-16); BILIRUBIN,TOTAL 1.5 mg/dL (0.2-1.2); CALCIUM 8.7 mg/dL (8.4-10.2); CREATININE, SERUM 0.63 mg/dL (0.72-1.25); TOTAL PROTEIN 5.9 g/dL (6.5-8.1)
[2024-10-08] MEDS: INSULIN LISPRO 100 UNIT/1 ML 3ML VIAL SQ SCH (07:30)
[2024-10-08 07:31] LABS: POTASSIUM 3.4 mmol/L (3.5-5.1)
[2024-10-08] MEDS ORDERED: ACETAMINOPHEN/CODEINE 300MG - 30MG TAB PO PRN (08:45)
[2024-10-08] MEDS: POTASSIUM CHLORIDE 20MEQ/100ML 100 ML IV SCH (10:22)
[2024-10-09] VITALS (20 sets, daily range): BP systolic 136–174; BP diastolic 81–99; PULSE 86–102; RESP 17–25; TEMP 97.6–98.3; O2SAT 89–100
[2024-10-09 06:15] LABS: BASOPHILS % 0.1 % (0.0-1.0); EOSINOPHILS # (AUTO) 0.1 (0.0-0.4); EOSINOPHILS % 0.6 % (0.0-6.0); HEMATOCRIT 37.5 % (38.2-49.6); HEMOGLOBIN 11.9 g/dL (14.0-18.0); LYMPHOCYTES # (AUTO) 2.3 (1.0-3.2); LYMPHOCYTES % 15.7 % (18.0-39.1); MEAN CORPUSCULAR HEMOGLOBIN 32.9 pg (28-32); MEAN CORPUSCULAR HGB CONC 31.7 g/dL (31-35); MEAN CORPUSCULAR VOLUME 103.6 fL (81-99); MONOCYTES # (AUTO) 1.3 (0.2-0.8); NEUTROPHILS # (AUTO) 10.7 (2.1-6.9); NEUTROPHILS % 74.1 % (38.7-80.0); PLATELET COUNT 244 x10e3/uL (140-360); RED BLOOD COUNT 3.62 x10e6/uL (4.3-5.7); WHITE BLOOD COUNT 14.49 x10e3/uL (4.8-10.8)
[2024-10-09 06:38] LABS: ALBUMIN 2.8 g/dL (3.5-5.0); ANION GAP 12.9 mmol/L (8-16); BILIRUBIN,TOTAL 1.1 mg/dL (0.2-1.2); CREATININE, SERUM 0.57 mg/dL (0.72-1.25); POTASSIUM 3.9 mmol/L (3.5-5.1); TOTAL PROTEIN 5.7 g/dL (6.5-8.1)
[2024-10-09] MEDS: PANTOPRAZOLE SOD 40 MG TABEC PO SCH (07:42)
[2024-10-10] VITALS (10 sets, daily range): BP systolic 136–171; BP diastolic 61–90; PULSE 84–101; RESP 17–22; TEMP 97.2–98.9; O2SAT 92–100
[2024-10-10] MEDS: Doxycycline IV 100 MG in SODIUM CHLORIDE 0.9% 100 ML IV SCH (01:04)
[2024-10-10 06:40] LABS: BASOPHILS % 0.2 % (0.0-1.0); EOSINOPHILS # (AUTO) 0.1 (0.0-0.4); EOSINOPHILS % 0.5 % (0.0-6.0); HEMATOCRIT 36.8 % (38.2-49.6); HEMOGLOBIN 11.4 g/dL (14.0-18.0); LYMPHOCYTES # (AUTO) 1.9 (1.0-3.2); LYMPHOCYTES % 13.8 % (18.0-39.1); MEAN CORPUSCULAR HEMOGLOBIN 33.1 pg (28-32); MONOCYTES # (AUTO) 1.3 (0.2-0.8); MONOCYTES % 9.3 % (4.4-11.3); NEUTROPHILS # (AUTO) 10.5 (2.1-6.9); NEUTROPHILS % 75.8 % (38.7-80.0); PLATELET COUNT 247 x10e3/uL (140-360); RED BLOOD COUNT 3.44 x10e6/uL (4.3-5.7); RED CELL DISTRIBUTION WIDTH 13.9 % (11.7-14.4); WHITE BLOOD COUNT 13.89 x10e3/uL (4.8-10.8)
[2024-10-10 07:08] LABS: ALBUMIN 2.9 g/dL (3.5-5.0); ANION GAP 12.7 mmol/L (8-16); BILIRUBIN,TOTAL 1.2 mg/dL (0.2-1.2); CALCIUM 9.1 mg/dL (8.4-10.2); CREATININE, SERUM 0.55 mg/dL (0.72-1.25); POTASSIUM 3.7 mmol/L (3.5-5.1); TOTAL PROTEIN 5.7 g/dL (6.5-8.1)
[2024-10-10] MEDS: ENOXAPARIN SOD INJ 40 MG/0.4 ML SYR SC SCH (16:27)
[2024-10-11] VITALS (13 sets, daily range): BP systolic 133–168; BP diastolic 67–99; PULSE 87–100; RESP 18–20; TEMP 97.4–97.9; O2SAT 93–100
[2024-10-11 07:05] LABS: BASOPHILS % 0.4 % (0.0-1.0); EOSINOPHILS # (AUTO) 0.1 (0.0-0.4); HEMATOCRIT 34.5 % (38.2-49.6); HEMOGLOBIN 10.7 g/dL (14.0-18.0); LYMPHOCYTES # (AUTO) 1.9 (1.0-3.2); LYMPHOCYTES % 17.4 % (18.0-39.1); MEAN CORPUSCULAR HEMOGLOBIN 32.5 pg (28-32); MEAN CORPUSCULAR VOLUME 104.9 fL (81-99); MONOCYTES # (AUTO) 1.2 (0.2-0.8); MONOCYTES % 10.4 % (4.4-11.3); NEUTROPHILS # (AUTO) 7.9 (2.1-6.9); NEUTROPHILS % 70.4 % (38.7-80.0); PLATELET COUNT 274 x10e3/uL (140-360); RED BLOOD COUNT 3.29 x10e6/uL (4.3-5.7); RED CELL DISTRIBUTION WIDTH 13.4 % (11.7-14.4); WHITE BLOOD COUNT 11.18 x10e3/uL (4.8-10.8)
[2024-10-11 07:39] LABS: ANION GAP 12.5 mmol/L (8-16); CREATININE, SERUM 0.55 mg/dL (0.72-1.25); POTASSIUM 3.5 mmol/L (3.5-5.1)
[2024-10-11] MEDS: PREDNISONE 20 MG TAB PO SCH (08:45)
[2024-10-12] VITALS (8 sets, daily range): BP systolic 129–157; BP diastolic 87–100; PULSE 84–110; RESP 17–20; TEMP 97.7–98.4; O2SAT 95–100
[2024-10-12 07:32] LABS: BASOPHILS % 0.3 % (0.0-1.0); EOSINOPHILS # (AUTO) 0.1 (0.0-0.4); HEMATOCRIT 36.5 % (38.2-49.6); HEMOGLOBIN 11.6 g/dL (14.0-18.0); LYMPHOCYTES # (AUTO) 2.6 (1.0-3.2); LYMPHOCYTES % 23.8 % (18.0-39.1); MEAN CORPUSCULAR HEMOGLOBIN 32.4 pg (28-32); MEAN CORPUSCULAR HGB CONC 31.8 g/dL (31-35); MONOCYTES # (AUTO) 1.1 (0.2-0.8); MONOCYTES % 10.3 % (4.4-11.3); NEUTROPHILS # (AUTO) 7.1 (2.1-6.9); NEUTROPHILS % 64.1 % (38.7-80.0); PLATELET COUNT 321 x10e3/uL (140-360); RED BLOOD COUNT 3.58 x10e6/uL (4.3-5.7); RED CELL DISTRIBUTION WIDTH 13.4 % (11.7-14.4)
[2024-10-12 07:59] LABS: ANION GAP 14.4 mmol/L (8-16); CALCIUM 9.6 mg/dL (8.4-10.2); CREATININE, SERUM 0.59 mg/dL (0.72-1.25)
[2024-10-12 08:15] LABS: POTASSIUM 3.4 mmol/L (3.5-5.1)
[2024-10-17 10:47] LABS: ABG PCO2 116 mmHg (35-45)
== END 2024-10-12 15:25 | disposition home health service (06) | DRG 207 ==
LOC: ER 19:24 → ERHOLD 22:11 → ICU 23:08 → MED/SURG3 10-09 11:42
PROVIDERS: ADMIT Internal Medicine; ATTEND Internal Medicine
PROC: 5A09357 Assistance with Respiratory Ventilation, Less than 24 Consecutive Hours, Continuous Positive Airway Pressure (ICD-10-PCS; 2024-10-02)
PROC: 5A1955Z Respiratory Ventilation, Greater than 96 Consecutive Hours (ICD-10-PCS; principal; 2024-10-03)
PROC: 0BH17EZ Insertion of Endotracheal Airway into Trachea, Via Natural or Artificial Opening (ICD-10-PCS; 2024-10-03)
PROC: 02HV33Z Insertion of Infusion Device into Superior Vena Cava, Percutaneous Approach (ICD-10-PCS; 2024-10-04)
PROC: 03HY32Z Insertion of Monitoring Device into Upper Artery, Percutaneous Approach (ICD-10-PCS; 2024-10-05)
PROC: 4A133R1 Monitoring of Arterial Saturation, Peripheral, Percutaneous Approach (ICD-10-PCS; 2024-10-07)
DX: J18.9 Pneumonia, unspecified organism (principal); J96.02 Acute respiratory failure with hypercapnia; J96.01 Acute respiratory failure with hypoxia; J44.1 Chronic obstructive pulmonary disease with (acute) exacerbation; J44.0 Chronic obstructive pulmonary disease with (acute) lower respiratory infection; E66.01 Morbid (severe) obesity due to excess calories; Z68.41 Body mass index [BMI] 40.0-44.9, adult; I27.20 Pulmonary hypertension, unspecified; I10 Essential (primary) hypertension; G47.33 Obstructive sleep apnea (adult) (pediatric); Z11.52 Encounter for screening for COVID-19
CPT/HCPCS: 36415; 36569; 36600; 71045; 71260; 74018; 80048; 80053; 81001; 82550; 82607; 82746; 82805; 82948; 83036; 83540; 83605; 83735; 83880; 84100; 84443; 84466; 84484; 85025; 85610; 85730; 87040; 87070; 87086; 87205; 93005; 94002; 94003; 94640; 94660; 94799; 99252; 99284; J0330; J0360; J0696; J1650; J2250; J2470; J2543; J2919; J3411; J3480; J7030; J7050; J7512; Q9967